=== PATIENT | male | born 1980 | race Caucasian/White ===

== ENCOUNTER 2017-12-03 14:16 | Emergency (ER) | payer MEDICAID ==
[~2017-12-03] VITALS: Ht 185.4 cm; Wt 90.7 kg
[~2017-12-03 14:16] MED LIST: HYDACE5 PO
[2017-12-03] MEDS ORDERED: Percocet 10-321 EACH PO (15:58)
== END 2017-12-03 16:11 | disposition home or self-care (01) ==
LOC: ER 14:16
DX: I47.1 Supraventricular tachycardia (principal); D68.51 Activated protein C resistance; F17.200 Nicotine dependence, unspecified, uncomplicated; Z88.0 Allergy status to penicillin
CPT/HCPCS: 93971; 96372; 99283-25; J1885

== ENCOUNTER 2017-12-06 23:36 | Emergency (ER) | payer MEDICAID ==
[~2017-12-06] VITALS: Ht 185.4 cm; Wt 99.8 kg
[~2017-12-06 23:36] MED LIST changes: +Percocet 10-321 EACH PO
[2017-12-06] MEDS ORDERED: ASPI325 PO (23:47)
[2017-12-07 00:15] LABS: BASOPHILS ABSOLUTE AUTO 0.03 K/mm3 (0.00-0.23); BASOPHILS PERCENT AUTO 0 % (0-2); EOSINOPHILS ABSOLUTE AUTO 0.15 K/mm3 (0.00-0.68); EOSINOPHILS PERCENT AUTO 2 % (0-6); Hematocrit 49.1 % (37.0-53.0); Hemoglobin 17.1 g/dL (13.5-17.5); IMMATURE GRAN ABSOLUTE AUTO 0.03 K/mm3 (0.00-0.10); IMMATURE GRAN PERCENT AUTO 0 % (0-1); LYMPHOCYTES ABSOLUTE AUTO 2.96 K/mm3 (0.84-5.20); LYMPHOCYTES PERCENT AUTO 31 % (21-46); MONOCYTES ABSOLUTE AUTO 0.79 K/mm3 (0.16-1.47); MONOCYTES PERCENT AUTO 8 % (4-13); Mean Corpuscular HGB 31.6 pg (26.0-34.0); Mean Corpuscular HGB Conc 34.8 g/dL (31.5-36.5); Mean Corpuscular Volume 91 fL (80-100); NEUTROPHILS PERCENT AUTO 59 % (41-73); Platelet Count 236 K/mm3 (150-400); RDW Coefficient Variation 12.8 % (11.7-14.2); RDW Standard Deviation 42.3 fL (35.1-46.3); Red Blood Cell Count 5.41 M/mm3 (4.30-5.90); White Blood Cell Count 9.66 K/mm3 (4.00-11.30)
[2017-12-07 00:29] LABS: International Normalized Ratio 0.9; Prothrombin Time Results 9.3 Sec (9.7-11.5)
[2017-12-07 00:35] LABS: Alanine Aminotransfer (ALT/SGP 56 U/L (12-78); Albumin, Blood 4.2 g/dL (3.4-5.0); Alk Phos 107 U/L (50-136); Anion Gap 10 mmol/L (6-16); Aspartate Aminotrans (AST/SGOT 32 U/L (12-37); Bilirubin, Total 0.2 mg/dL (0.1-1.0); Blood Urea Nitrogen 16 mg/dL (8-24); Bun/Creatinine Ratio 16.2 (12.0-20.0); CO2, Blood 22 mmol/L (21-32); Calcium, Blood 8.9 mg/dL (8.5-10.1); Chloride, Blood 105 mmol/L (98-108); Creatinine, Blood 0.99 mg/dL (0.60-1.20); Globulin, Blood 4.1 g/dL (2.2-4.0); Glomerular Filtration Rate >60 (60-); Glucose, Blood 88 mg/dL (70-99); Sodium, Blood 137 mmol/L (136-145); Total Protein, Blood 8.3 g/dL (6.4-8.2); Troponin I <0.015 ng/mL (0.000-0.040)
== END 2017-12-07 02:31 | disposition home or self-care (01) ==
LOC: ER 23:36
PROVIDERS: Emergency Medicine
DX: R07.9 Chest pain, unspecified (principal); F17.210 Nicotine dependence, cigarettes, uncomplicated; Z88.0 Allergy status to penicillin; Z79.82 Long term (current) use of aspirin; Z86.718 Personal history of other venous thrombosis and embolism
CPT/HCPCS: 36415; 71260; 80053; 83880; 84484; 85025; 85610; 85730; 93005; 93010; 96374; 96375; 99284-25; J2405; J3010; Q9967

== ENCOUNTER → 2022-03-12 | Outpatient (CLI) | payer SELFPAY ==
[~2022-03-12] MED LIST changes: +ASPI325 PO
== END | disposition home or self-care (01) ==
LOC: LAB SHORT 13:10
DX: R30.0 Dysuria (principal)
CPT/HCPCS: 87077; 87086; 87186

== ENCOUNTER → 2022-05-28 | Outpatient (CLI) | payer OTHER | END | disposition home or self-care (01) | LOC: LAB SHORT 14:40 → LAB 14:40 | DX: R30.0 Dysuria (principal) | CPT/HCPCS: 87077; 87086; 87186 ==